=== PATIENT | female | born 1985 | race African-American/Black ===

== ENCOUNTER 2023-09-26 23:07 | Emergency (ER) | payer BC, SELFPAY ==
--- NOTE | ~2023-09-26 | XR_ITS ---
Portable chest x-ray Comparison: None Clinical History: Chest pain Findings: Lungs are clear, without focal consolidation or pleural effusion. Cardiomediastinal silho uette is unremarkable. Bones and soft tissues are unremarkable. Impression: Normal chest. Reviewed, dictated and finalized at location M. Impression: Normal chest.
[2023-09-26 23:17] VITALS: BP 127/78; PULSE 81; RESP 17; TEMP 36.5; O2SAT 100
--- NOTE | 2023-09-26 23:23 | ECG_ITS ---
[facility] [address] Test Date: 2023-09-26 Pat Name: Raven Cano Department: Room: Gender: F Door To Door Selling Agent: : 1985 Requested By: Lucius Dykes Order Number: [id number] Manas MD: Tip Marx M.D. Measurements Intervals [place] Rate: 89 P: 72 CA: 148 QRS: 57 QRSD: 72 T: 68 QT: 340 QTc: 415 Interpretive Statements SINUS RHYTHM NORMAL ECG No previous ECG available for comparison Electronically Signed On 09-27-2023 07:33:16 CDT by Tip Marx M.D.
[2023-09-27 00:12] LABS: Basophils Percent Auto 0.4 % (0.2-1.2); Eosinophils Absolute Auto 0.1 K/mm3 (0-0.3); Hematocrit 38.2 % (37.0-47.0); Hemoglobin 12.9 g/dL (12.0-15.0); Immature Granulocyte Absolute 0.01 K/mm3 (0.00-0.031); Immature Granulocyte Percent A 0.2 % (0-0.5); Lymphocytes Absolute Auto 1.99 K/mm3 (0.9-3.2); Lymphocytes Percent Auto 40.9 % (18.3-44.2); Mean Corpuscular HGB Conc 33.8 g/dl (32-36); Mean Corpuscular Hemoglobin 32.8 pg (26-34); Mean Corpuscular Volume 97.2 fl (80-100); Mean Platelet Volume 9.4 fl (7.4-10.4); Monocytes Absolute Auto 0.4 K/mm3 (0.1-0.6); Monocytes Percent Auto 7.2 % (2.6-8.5); Neutrophils Absolute Auto 2.5 K/mm3 (1.3-6.7); Neutrophils Percent Auto 50.3 % (45.5-73.1); Platelet Count Result 210 k/mm3 (150-375); Red Blood Count 3.93 M/mm3 (4.2-5.4); White Blood Count 4.9 K/mm3 (4.5-10.0)
[2023-09-27 00:34] LABS: SPREG INTERNAL CONTROL Positive; Serum Qual hCG Negative
[2023-09-27 00:40] LABS: Alanine Aminotransferase 33 U/L (6-35); Albumin Level 4.4 g/dL (3.5-5.1); Alkaline Phosphatase 56 U/L (38-126); Anion Gap 7 mmol/L (4-12); Aspartate Amino Transferase 27 U/L (14-36); Bilirubin,Total 0.4 mg/dL (0.2-1.3); Blood Urea Nitrogen 14 mg/dL (7-17); Calcium 9.2 mg/dL (8.4-10.2); Carbon Dioxide 25 mmol/L (22-30); Chloride 108 mmol/L (98-107); Estimated CRCL calculation 89 ml/min; Estimated Glomerular Filt Rate > 60; Glucose 94 mg/dL (65-110); Magnesium 1.9 mg/dL (1.6-2.3); Potassium 4.1 mmol/L (3.4-5.0); Sodium 140 mmol/L (137-145); Troponin I < 0.012 ng/mL (0.000-0.034)
--- NOTE | 2023-09-27 00:53 | ED.ANXIETY ---
HPI - Anxiety General Chief Complaint: Anxiety Stated Complaint: anxiety Time Seen by Provider: 09/27/23 00:52 History of Present Illness HPI narrative: Patient is a 38-year-old female who presents to the emergency department this evening due to an anxiety attack. Patient states that she does have a history of anxiety and does get these panic attacks from time to time, she states that she has not followed up with any doctor regarding this and does not take any medications for anxiety. She did admit that she was having some chest pain when she 1st arrived to the emergency although she is currently denying any chest pain. She denies any nausea or vomiting, any abdominal pain, any fevers or chills at home or any recent URI symptoms. No additional symptoms or concerns at this time. Related Data Allergies Allergy/AdvReac Type Severity Reaction Status Date / Time No Known Allergies Allergy Verified 09/26/23 23:49 Review of Systems Review of Systems: All systems are reviewed and are negative unless stated otherwise in the HPI. Exam Narrative: General: Alert, awake, afebrile, in no acute distress. HEENT: PERRL, no rhinorrhea, no post nasal drip, oropharynx clear. Cardiovascular: Regular rate and rhythm, no murmurs, rubs or gallops, no peripheral edema. Respiratory: Clear to auscultation bilaterally, no tachypnea, no wheezing, no rhonchi, no rubs, no respiratory distress. Abdomen: Soft, nontender, nondistended, no rebound, no guarding, no peritoneal signs. Musculoskeletal: No joint swelling or deformity, normal muscle tone. Skin: No rashes or petechia, no signs of infection. Neurological: Alert and oriented to person, place, and time. Follows all commands. No focal deficits, speech is clear and fluent. Course Vital Signs Vital signs: Vital Signs Temperature 97.7 F 09/26/23 23:17 Pulse Rate 81 09/26/23 23:17 Respiratory Rate 09/26/23 23:17 Blood Pressure 127/78 09/26/23 23:17 Pulse Oximetry 100 09/26/23 23:17 Oxygen Delivery Room Air 09/26/23 23:17 Temperature 97.7 F 09/26/23 23:17 Pulse Rate 81 09/26/23 23:17 Respiratory Rate 17 09/26/23 23:17 Blood Pressure 127/78 09/26/23 23:17 Pulse Oximetry 100 09/26/23 23:17 Oxygen Delivery Room Air 09/26/23 23:17 MDM - Anxiety MDM Narrative Medical decision making narrative: The patient was evaluated by myself in the emergency department. History is obtained from patient who is an independent historian and physical exam was performed. External medical records were reviewed at this time. IV was established and pertinent tests were ordered. EKG was obtained which revealed sinus rhythm at a rate of 89 beats per minute. No ST changes, T wave inversions or evidence of acute ischemia. EKG was independently interpreted by me and is currently pending official cardiology read. Laboratory results obtained revealing no acute process. Imaging studies obtained included CXR which was independently interpreted by me revealing no acute cardiopulmonary process, which is pending final radiology interpretation. Differential diagnosis considerations include acute viral syndrome, anxiety reaction, panic attack and acute coronary syndrome although unlikely given patient's lack of comorbidities and low heart score of 0. Comorbidities impacting this visit include history of anxiety. I have evaluated and discussed social determinants of health with the patient that could potentially impact subsequent diagnosis and treatment plans. On repeat assessment of the patient, reevaluation revealed that the patient is doing well and is in no acute distress. Patient symptoms have improved since she arrived to our emergency department. Repeat vital signs were all reviewed and noted to be stable. Differential diagnosis and treatment plan were discussed with the patient at bedside. Patient agrees with discussion and after shared medical decision making agrees w
== END 2023-09-27 02:57 | disposition home or self-care (01) ==
PROVIDERS: Emergency Provider Emergency Medicine
DX: F41.9 Anxiety disorder, unspecified (principal)
CPT/HCPCS: 36415; 71045; 80053; 83735; 84484; 84703; 85025; 93005; 99284

== ENCOUNTER 2025-03-19 23:40 | Emergency (ER) | payer BC, SELFPAY ==
--- NOTE | ~2025-03-19 | XR_ITS ---
Examination: XR chest 2V Clinical History: sob, palpitations Comparison: 09/27/2023 Technique: PA and Lateral Findings: Cardiomediastinal silhouette normal size and configuration. Lungs clear. No acute bony abnormality. IMPRESSION: 1. No acute cardiopulmonary findings. Reviewed, dictated and finalized at location R. [employer]
--- OUTSIDE RECORDS SUMMARY | 2025-03-19 23:43 | XMS_ITS | Clinical Summary ---
Author Organization [facility] Address [address] [place] [address] Care Team Providers Care Cement Finisher Name Role Phone Mable Hou Jacqueline SATELLITE COMMUNICATIONS OPERATOR Primary Care Provider [phone] Allergies No known active allergies Medications metoprolol succinate ER (TOPROL-XL) 25 MG 24 hr tablet Take 0.5 tablets every day by oral route. Active [place]-3 Fatty Acids (FISH OIL) 500 MG capsule Take 500 mg by mouth daily. Active traMADol (ULTRAM) 50 MG tabletIndicatio ns:Acute Pain < 3 Day Supply Take 1 tablet (50 mg total) by mouth every 6 (six) hours as needed for Pain. Indications: Acute Pain < 3 Day Supply 10 tablet 03/02/2024 Active Active Problems No known active problems Family History Medical History Relation Comments No Known Problems Father No Known Problems Mother Relation Status Comments Father Alive Mother Alive Social History Tobacco Use Types Packs/Day Years Used Date Smoking Tobacco: Never Smokeless Tobacco: Never Tobacco Cessation:Counseling Given: Not Answered Alcohol Use Standard Drinks/Week Comments No 0 (1 standard drink = 0.6 oz pur e alcohol) Comments No Sex and Gender Information Value Date Recorded Sex Assigned at Not on file Legal Sex Female 6:22 PM CDT Gender Identity Not on file Sexual Orientation Not on file Last Filed Vital Signs Vital Sign Reading Time Taken Comments Blood Pressure 112/88 03/02/2024 5:00 PM WARP STARTER Pulse 81 03/02/2024 5:00 PM WARP STARTER Temperature 36.7 C (98 F) 03/02/2024 5:00 PM WARP STARTER Respiratory Rate 16 03/02/2024 5:00 PM WARP STARTER Oxygen Saturation 100% 03/02/2024 5:00 PM WARP STARTER Inhaled Oxygen Concentration - - Weight 51.6 kg (113 lb 12.1 oz) 03/02/2024 1:38 PM WARP STARTER Height 160 cm (5' 3) 03/02/2024 1:38 PM WARP STARTER Body Mass Index 20.15 03/02/2024 1:38 PM WARP STARTER Plan of Treatment Health Maintenance Due Date Last Done Comments Annual Physical 02/04/1987 Hepatitis C 02/04/2002 DTaP, Tdap and Td Vaccines (1 - Tdap) 02/04/2003 03/13/1988, 03/20/1986, 1984, Additional history exists Hepatitis B Vaccines (1 of 3 - 19+ 3-dose series) 02/04/2003 HPV Vaccines (1 - 3-dose SCDM series) 02/04/2011 COVID-19 Vaccine ( season) 2024 Influenza Adult (#1) 2025 Mammogram Screening 01/05/2026 01/06/2024, 10/01/2023, 09/10/2022 Hepatitis A Vaccines Aged Out No long er eligible based on patient's age to complete this topic Meningococcal B Vaccine Aged Out No l onger eligible based on patient's age to complete this topic Meningococcal Vaccine Aged Out No denise miah eligible based on patient's age to complete this topic Pneumococcal Vaccine: Pediatrics (0 to 5 Years) and At-Risk Patients (6 to 49 Years) Aged Out No longer eligible based on patient's age to complete this topic RSV Immunizations Under 20 Months Aged Out No longer eligible based on patient's age to complete this topic Procedures Procedure Name Priority Date/Time Associated Diagnosis Comments MG DIAGNOSTIC LT DIGI Routine 01/06/2024 2:52 PM CDT Abnormal finding on breast imaging from Last 3 Months or Most Recently Relevant to Health Maintenance Results * MG DIAGNOSTIC LT DIGI (01/06/2024 2:52 PM CDT) Anatomical Region Laterality Modality Breast Left Mammography 01/06/2024 3:20 PM CDT Impressions 01/06/2024 3:25 PM CDT =====IMPRESSION:===== Biopsy clip in upper outer quadrant of the left breast ASSESSMENT: WAITING FOR PATHOLOGY Recommendation: 1: Waiting on Pathology Left COMMENTS: Ordered By: TIP ROSS Interpreted By: Wanda Dorsey, 01/06/2024 3:20 PM Narrative 01/06/2024 3:25 PM CDT [facility] [place] [address] EXAMINATION: Digital left diagnostic mammogram with 3-D tomography EXAM DATE/TIME: 01/06/2024 2:51 PM REASON FOR EXAM: post bx, abnormal mammogram COMPARISON: 09/10/2022. 10/01/2023 TECHNIQUE: Digital diagnostic mammography of the left breast was performed in addition to 3-D Tomosynthesis technique. This study was read with the assistance of a computer-aided detection system. TISSUE DENSITY: The breasts are heterogeneously dense, which may obscure small masses. FINDINGS: Biopsy clip in the upper outer quadrant of the left breast at the level of prior identified nodule.. Stable prior biopsy clip within the lateral and inferior portion of the left breast in its mid aspect. Tip Ross MD MAMMO Final Result from Last 3 Months or Most Recently Relevant to Health Maintenance Care Teams Cement Finisher Relationship Specialty Start Date End Date Mable Hou NP [address] [place] [address] PCP - General Nurse Practitioner Family 04/29/23
--- OUTSIDE RECORDS SUMMARY | 2025-03-19 23:43 | XMS_ITS | Clinical Summary ---
Author Organization [facility] Address [address] [place] [phone] Phone Care Team Providers Care House Cleaner Name Role Phone Bryant Boogie MD Primary Care Provider [phone] Active Problems Problem Noted Date Diagnosed Date Heart murmur 09/02/2015 Encounters Date Type Department Care Team Description 02/27/2025 External Device Data ST[facility] ABSTRACTION Provider, Abstract 02/21/2025 External Device Data [facility] ABSTRACTION Provider, Abstract 02/20/2025 External Device Data ST[facility] ABSTRACTION Provider, Abstract 02/13/2025 External Device Data STL ABSTRACTION Provider, Abstract from Last 3 Months Social History Tobacco Use Types Packs/Day Years Used Date Smoking Tobacco: Never Assessed Comments Unknown Sex and Gender Information Value Date Recorded Sex Assigned at Not on file Legal Sex Female 9:14 AM CDT Gender Identity Not on file Sexual Orientation Not on file Plan of Treatment Health Maintenance Due Date Last Done Comments DTAP/TDAP/TD VACCINES (1 - Tdap) 02/04/2003 HEPATITIS B VACCINES (1 of 3 - 19+ 3-dose series) 02/04/2003 HPV VACCINES (1 - 3-dose SCD M series) 02/04/2011 INFLUENZA VACCINE (#1) 2024 BREAST CANCER SCREENING 01/05/2025 01/06/20, 01/06/2024, 09/10/2022 Insurance [employer] Care Teams House Cleaner Relationship Specialty Start Date End Date Bryant Boogie MD PCP - General Internal Medicine 08/28/15
--- OUTSIDE RECORDS SUMMARY | 2025-03-19 23:43 | XMS_ITS | Data Portability ---
Author Organization [place] - [facility] OFFICE Address [address] [place] [address] Assessment Encounter Date Assessment Date Assessment LastModified by Organization Details LastModified Time 07/21/2017 07/21/2017 Discussed with patient findings, diagnosis, and prognosis. Discussed evaluation and treatment options including risks and benefits with patient, and patient expressed understanding. The following interventions were recommended: heart healthy low-fat, low-sodium diet, continue regular exercise, maintain appropriate weight, continue current medications, and medical follow-up as noted. [email or web address] Not available 07/21/2017 12:55:47 01/03/2018 01/03/2018 Discussed with patient findings, diagnosis, and prognosis. Discussed evaluation and treatment options including risks and benefits with patient, and patient expressed understanding. The following interventions were recommended: heart healthy low-fat, low-sodium diet, continue regular exercise, maintain appropriate weight, continue current medications, and medical follow-up as noted. [email or web address] Not available 01/03/2018 11:54:49 02/07/2019 02/07/2019 Discussed with patient findings, diagnosis, and prognosis. Discussed evaluation and treatment options including risks and benefits with patient, and patient expressed understanding. The following interventions were recommended: heart healthy low-fat, low-sodium diet, continue regular exercise, maintain appropriate weight, continue current medications, and medical follow-up as noted. [email or web address] Not available 02/07/2019 18:02:38 Plan of Treatment Reminders Order Date Submit Date Provider Last Modified By Organization Details Last Modified Time Details Appointments None recorded. Lab None recorded. Referral None recorded. Procedures None recorded. Surgeries None recorded. Imaging electrocar diogram 2017 018 [email or web address] Not available 8 14:40:57 electrocar diogram 2017 018 [email or web address] Not available 8 14:27:32 US, echocardio gram, transthora cic, complete, w/ color flow 2015 016 [email or web address] [id number] Not available 6 04:47:22 electrocar diogram 2015 016 [email or web address]_PATCH_ [id number] Not available 6 04:47:22 Medication Orders Toprol XL 25 mg tablet,ext ended release 2018 019 INTERFACE [facility], [address] [place] [address], [id number], 9 18:29:04 magnesium oxide 400 mg (241.3 mg magnesium) tablet 2018 019 [facility]FACE [facility], [address] [place] [address], [id number], 9 18:29:04 Toprol XL 25 mg tablet,ext ended release 2017 018 [facility], [address] [place] [address], [id number], 9 18:07:47 Patient TargetsNo targets recorded. Patient Instructions Encounter Date Encounter Id Patient Instructions Last Modified By Organization Details Last Modified Time 01/02/2016 [id number] heart valve disease: care instructions [email or web address] Not available 04/11/2016 04:47:22 mitral valve prolapse: care instructions [email or web address]_ [email or web address] Not available 04/11/2016 04:47:22 palpitations: care instructions [email or web address]_ [email or web address] Not available 04/11/2016 04:47:22 learning about mood disorders [email or web address]_ [email or web address] Not available 04/11/2016 04:47:22 06/24/2017 [id number] heart valve disease: care instructions [email or web address] Not available 06/24/2017 14:27:32 mitral valve prolapse: care instructions [email or web address] Not available 06/24/2017 14:27:32 palpitations: care instructions [email or web address] Not available 06/24/2017 14:27:32 This document was scribed by Mirlande hutchinson Not available 06/24/2017 14:01:12 07/21/2017 [id number] chest pain: care instructions Not available 07/21/2017 14:14:14 heart valve disease: care instructions [email or web address] Not available 07/21/2017 14:14:14 mitral valve prolapse: care instructions [email or web address] Not available 07/21/2017 14:14:14 palpitations: care instructions [email or web address] Not available 07/21/2017 14:14:14 This document was scribed by Mirlande hutchinson Not available 07/21/2017 13:29:12 01/03/2018 [id number] chest pain: care instructions [email or web address] Not available 01/03/2018 12:23:35 heart valve disease: care instructions [email or web address] Not available 01/03/2018 12:23:35 mitral valve prolapse: care instructions [email or web address] Not available 01/03/2018 12:23:35 palpitations: care instructions [email or web address] Not available 01/03/2018 12:23:35 02/07/2019 [id number] chest pain: care instructions [email or web address] Not available 02/07/2019 18:28:59 heart valve disease: care instructions [email or web address] Not available 02/07/2019 18:28:59 mitral valve prolapse: care instructions [email or web address] Not available 02/07/2019 18:28:59 palpitations: care instructions [email or web address] Not available 02/07/2019 18:28:59 Reason for Referral None Reported. Results Created Date Observation Date Name Description Value Unit Range Abnormal Flag Note LastModifiedBy Organization Detail LastModifiedTime 01/02/20 16 01/02/2016 elect amanda diogr am Result ECG : Sinus rhythm -occas ional ectopi c ventri cular beat. Negati ve precor dial T-wave s. WITHIN NORMAL LIMITS Not Available Humble Bean MD [address], [place], [address], 01/02/2016 13:51:28 06/25/19 18 06/24/2017 elect rocar diogr am Result EKG (06/24): NSR, NSST change s Not Available Humble Bean MD [address], [place], [address], 06/24/2017 14:25:11 01/02/20 16 01/02/2016 elect rocar diogr am No observ ation record ed. [email or web address] Humble Bean MD [address], [place], [address], 02/13/2016 14:10:28 01/12/20 16 01/10/2016 US, echoc ardio gram, trans thora cic, compl ete, w/ color flow No observ ation record ed. esto [facility] [address], [place], [address], 04/01/2016 18:36:00 04/13/20 16 01/10/2016 US, echoc ardio gram, trans thora cic, compl ete, w/ color flow No observ ation record ed. [email or web address] Humble Bean MD [address], [place], [address], 04/15/2016 09:27:49 06/25/19 18 06/24/2017 elect rocar diogr am No observ ation record ed. [email or web address] Not Available 2017 17:20:10 06/25/19 18 06/24/2017 elect rocar diogr am No observ ation record ed. [email or web address] Not Available 2017 17:33:18 07/09/19 18 07/05/2017 US, echoc ardio gram, trans thora cic, compl ete, w/ color flow No observ ation record ed. esto [facility] [address], [place], [address], 07/16/2017 11:25:45 02/09/20 19 01/31/2019 jenny johnson am No observ ation record ed. [email or web address] Not Available 2018 15:25:31 02/09/20 19 01/31/2019 XR, chest No observ ation record ed. Not Available 2018 15:26:03 04/25/20 19 04/05/2019 quan r monit or No observ ation record ed. [email or web address] Not Available 2018 16:16:23 05/25/19 20 05/10/2019 quan r monit or No observ ation record ed. [email or web address] Not Available 2019 14:31:30 Result Notes None recorded. Problems Name Problem SNOMED Code Status Onset Date Resolution Date Notes Provider Name and Address Organization Details Recorded Time Anxiety 19324912 Active 2015 Enedina Monsalve [place], [place] - [facility] 6 05:03:18 Motion sickness 58867247 Active 2015 Brad Harding [place], [place] - [facility] 6 04:38:51 Endometriosis (clinical) 037300684 Active 2015 Brad Hard[place] - [facility] 6 04:39:39 Cyst of ovary 61227041 Active 2015 Enedina Monsalve [place] - [facility] 6 05:03:50 Migraine 96736696 Active 2015 Brad Hard[place] - [facility] 6 04:41:15 Palpitations 85941426 Active 2015 Enedina Monsal[place] - [facility] 6 05:02:44 Mitral valve prolapse 252056913 Active 2015 Enedina Monsalve [place] - [facility] 6 05:03:03 Depressive disorder 75565800 Active 2015 Enedina Monsalve [place] - [facility] 6 05:03:27 Dyslipidemia 891920319 Active 2015 Brad Harding [place], [place] - [facility] 6 02:42:35 Electrocardiog cuauhtemoc abnormal 604113597 Active 2017 Enedina Monsalve [place] - [facility] 8 11:23:07 Chest pain 04370542 Active 2017 Miguel Massey [facility] 8 14:06:31 Osteoarthritis 775990335 Active 2018 Jayson Sullivan [facility] 9 18:06:53 Problem Notes None recorded. Procedures Surgical History Date Name Laterality Status Provider Name and Address Organization Details Recorded Time Partial hysterectomy completed Mcconnell Gricel [facility] 08/02/2015 05:04:16 Imaging Results None recorded. Procedure Notes None recorded. Medical Equipment None Reported. Allergies No known drug allergies Medications Name Sig Start Date Stop Date Status Note LastModified by Organization Details LastModified Time cyclobenza brianda 10 mg tablet Take 1 tablet every day by oral route for 10 days. active Not Available Not Available No t Available amoxicilli n 500 mg capsule 01/03 completed Not Available Not Available Not Available cefuroxime axetil 250 mg tablet 02/07 completed pt not taking . 9 Not Available Not Available Not Available clindamyci n HCl 300 mg capsule 07/21 completed Not Available Not Available Not Available Lidocaine Viscous 2 % mucosal solution 07/21 completed Not Available Not Available Not Available fluconazol e 150 mg tablet active pt not taking . 9 Not Available Not Available Not Available promethazi ne 6.25 mg/5 mL oral syrup active pt not taking . 9 Not Available Not Available Not Available clonazepam 0.5 mg tablet twice daily 01/03 completed Not Available Not Available Not Available metronidaz ole 500 mg tablet active Not Available Not Available Not Available ciprofloxa gracie 500 mg tablet 02/07 completed pt not taking . 9 Not Available Not Available Not Available hydrocodon e 10 mg-acetami nophen 325 mg tablet 01/03 completed Not Available Not Available Not Available magnesium oxide 400 mg (241.3 mg magnesium) tablet Take 1 tablet every other day by oral route. active Not Available Not Available No t Available oxycodone- acetaminop hen 10 mg-325 mg tablet active pt not taking . 9 Not Available Not Available Not Available mirtazapin e 30 mg tablet active pt not taking . 9 Not Available Not Available Not Available digoxin 125 mcg (0.125 mg) tablet Take 1 tablet every day by oral route. 01/03 completed Not Available Not Available Not Available metoprolol succinate ER 25 mg tablet,ext ended release 24 hr Take 0.5 tablets every day by oral route. active Not Available Not Available No t Available diltiazem 60 mg tablet Take 1 tablet twice a day by oral route. 01/03 completed Not taking for months Not Available Not Available Not Available azithromyc in 500 mg tablet 02/07 completed Not Available Not Available Not Available escitalopr am 10 mg tablet Take 1 tablet every day by oral route. active Not Available Not Available No t Available metoprolol tartrate 25 mg tablet active Not Available Not Available Not Available nitrofuran toin monohydrat e/macrocry stals 100 mg capsule 07/21 completed Not Available Not Available Not Available Fish Oil 1000g capsule qd active Not Available Not Available No t Available Toprol XL 50 mg half tablet qd 01/01 completed (Metopr olol succina te) Not Available Not Available Not Available Fish Oil 100 mg-160 mg-1,000 mg capsule Take by oral route. 07/31 completed Not Available Not Available Not Available Virtussin AC 10 mg-100 mg/5 mL oral liquid 07/21 completed Not Available Not Available Not Available Vitals Date Recorded Body weight Heart rate Oxygen saturation Body mass index (BMI) Body height Provider Name and Address Organization Details Last Updated DateTime 06/24/2017 47638.61 g 83 /min 98 % 17.9 kg/m2 162.56 cm [facility] 8 12:16:16 Date Recorded Systolic And Diastolic Provider Name and Address Organization Details Last Updated DateTime 06/24/2017 118/85 mm[Hg] Autumn Yu [facility] 06/24/2017 12:57:36 Date Recorded Body height Body mass index (BMI) Body weight Heart rate Oxygen saturation Systolic And Diastolic Provider Name and Address Organization Details Last Updated DateTime 8 162.56 cm 17.7 kg/m2 30732.0 1 g 94 /min 97 % 100/88 mm[Hg] Tata Matt [facility] 8 13:03:06 Date Recorded Body height Body weight Body mass index (BMI) Heart rate Oxygen saturation Systolic And Diastolic Provider Name and Address Organization Details Last Updated DateTime 6 162.56 cm 55133.0 1 g 17.7 kg/m2 90 /min 99 % 110/60 mm[Hg] Alice Archuleta [facility] 6 13:48:03 Date Recorded Body height Body mass index (BMI) Body weight Heart rate Oxygen saturation Systolic And Diastolic Provider Name and Address Organization Details Last Updated DateTime 8 162.56 cm 17 kg/m2 95175.6 4 g 92 /min 99 % 96/70 mm[Hg] Kasandra Blake [facility] 8 12:06:31 Date Recorded Body height Body mass index (BMI) Body weight Heart rate Respiratory rate Systolic And Diastolic Provider Name and Address Organization Details Last Updated DateTime 9 160.02 cm 18.8 kg/m2 87591.7 9 g 79 /min 18 /min 116/76 mm[Hg] Deb Reza [facility] 9 18:03:08 Social History Question Answer Notes LastModified by Chictini ion Details LastModified Time Tobacco Smoking Status Never Smoker Not Available [facility] 02/27/2020 03:30:19 What Was The Date Of Your Most Recent Tobacco Screening? 07/21/2017 [id number] Information not available 02/27/2020 How Many Years Have You Smoked Tobacco? 0 [id number] Information not available 02/27/2020 Sex: Unknown Functional Status None recorded. Mental Status None recorded. Family History Relationship Description Onset Age of this Age Resolved Age Notes LastModified by Organization Details LastModified Time Mother Diabetes mellitus [email or web address] Not available 2015 05:05:02 Maternal Aunt Diabetes mellitus [email or web address] Not available 2015 05:05:18 Maternal Grandmother Myocardial infarction in 60s with MT [email or web address] Not available 07/21/2017 14:00:38 Medical History Condition Response Coronary Artery Disease N Atrial Fibrillation N Thyroid Disease N Depression Y COPD N Anemia N TIA N Genitourinary Disease N Gastrointestinal Disease N Deep Vein Thrombosis N Diabetes N Cardiomyopathy N Blood Clot N Myocardial Infarction N Valvular Heart Disease Y Hyperlipidemia N Cancer N Stroke N Asthma N Atrial Flutter N Sleep Apnea N Aortic Aneurysm N Sleep Disorder N GERD/Reflux N High Cholesterol N Warfarin Management N Neurologic Disorder N Liver Disease N Heart Disease N Arrhythmia N Hypertension N Kidney Disease N Hematologic Disease N Gynecological HistoryNo gynecological history recorded. Obstetrics History GPAL:G 2 P 0 0 0 0 Past Encounters Encounter ID Performer Location Encounter Start Date Encounter Closed Date Diagnosis/Indication Diagnosis SNOMED-CT Code Diagnosis ICD10 Code Diagnosis IMO Codes Diagnosis Note [id number] MD Charla Raza Office [address] [place] [address] 08/26/2015 12:34:34 08/26/2015 14:13:08 Palpitations 39897424 R00.2 Will increase Cardizem to 90 mg po bid Mitral valve prolapse 40 6036747 I34.1 Dyslipidemia 434416323 E 78.5 [id number] Humble Bean MD [place] [facility] [address] [place] [address] 10/07/2015 17:17:51 10/07/2015 19:45:05 Palpitations 70883266 R00.2 ON Cardizem to 90 mg po bid Mitral valve prolapse 40 3062889 I34.1 Dyslipidemia 544584611 E 78.5 Needs to keep LDL less than 100, and HDL more than 40 Depressive disorder 5813 3857 F32.9 treatment and evaluation by primary care doctor [id number] MD Charla Raza Office [address] [place] [address] 01/02/2016 12:14:29 01/07/2016 09:39:40 Electrocardiogram abnormal 998243986 R94.31 Palpitations 52051371 R0 0.2 On Cardizem Mitral valve prolapse 40 4311995 I34.1 Dyslipidemia 650455954 E 78.5 Depressive disorder 3548 9007 F32.9 treatment and evaluation by primary care doctor [id number] Jayson Sullivan MD [place] [facility] [place] [address] 06/24/2017 12:10:44 06/25/2017 14:09:37 Palpitations 57514360 R00.2 Will obtain 24hr Holter Monitor and ECHO. Start Toprol Mitral valve prolapse 40 5687250 I34.1 ECHO Anxiety 15021649 F41.9 [id number] Miguel Massey MD [place] [facility] [place] [address] 07/21/2017 12:48:56 07/23/2017 12:30:48 Palpitations 44438882 R00.2 Will obtain Zio Heart Monitor to track patients rhythm over a 3 day period. Stopped Diltiazem months ago. Has tried Metoprolol in the past. Did not tolerate either medication . Consider Bystolic pending monitor results. Mitral valve prolapse 40 2120436 I34.1 Stable. Regular exercise, caffeine reduction, stress reduction advised. Had ECHO on 07/05/17 showed LV chamber size is normal. LV wall thickness is normal. There is normal global systolic function and contractil ity. The estimated left ventricle ejection fraction is 60-65%(nor mal). Normal left atrial pressure and diastolic function. There is mild aortic valve sclerosis without significan t stenosis. Mitral valve prolapse cannot be ruled out. The mitral valve leaflet is mildly thickened. There is mild mitral regurgitat ion. There is mild tricuspid regurgitat ion. Anxiety 96310955 F41.9 Stable. Chest pain 19129181 R07. 9 She continues to have progressiv e palpitatio ns for 30 minutes duration that are worse with exertion, with associated central chest pain/cramp ing, lightheade dness and shortness of breath. Reported marked dyspnea on exertion with palpitatio ns climbing 1 flight of stairs for 1 year and unable to walk on a level surface for more than 2 blocks. Patient presents with chest pain with atypical features and exertional dyspnea which can be an anginal equivalent . Needs to begin exercise regiment for MVP treatment. Given the history, exam findings and intermedia te cardiac risk factors, I feel additional investigat ion is warranted. I have made arrangemen ts in the near future for an exercise stress nuclear test (stress echo not possible due to inability to walk at a rapid rate for an extended period).. The procedure was discussed with the patient, and risks, benefits, and alternativ e options were explained. Appropriat e labwork has not been performed recently, therefore I have made arrangemen ts for further testing: FLP, TSH, BMP, Mg, digoxin level. I have asked the patient to curtail exercise and activities until our investigat ion is complete. I have made no adjustment s to the present medical regimen. [id number] MD Charla Raza e Office [address] [place] [address] 01/03/2018 10:55:00 01/03/2018 12:26:42 Palpitations 56165418 R00.2 Will obtain Zio Heart Monitor to track patients rhythm over a 3 day period. Stopped Diltiazem months ago. Has tried Metoprolol in the past. Did not tolerate either medication . Chest pain 09127862 R07. 9 Will get exercise stress echo, to look for any structural heart disease, and to look for any ischemia Mitral valve prolapse 40 1278789 I34.1 Stable. Regular exercise, caffeine reduction, stress reduction advised. Had ECHO on 07/05/17 showed LV chamber size is normal. LV wall thickness is normal. There is normal global systolic function and contractil ity. The estimated left ventricle ejection fraction is 60-65%(nor mal). Normal left atrial pressure and diastolic function. There is mild aortic valve sclerosis without significan t stenosis. Mitral valve prolapse cannot be ruled out. The mitral valve leaflet is mildly thickened. There is mild mitral regurgitat ion. There is mild tricuspid regurgitat ion. Anxiety 91941634 F41.9 Stable. [id number] MD Charla Perez e Office [address] [place] [address] 02/07/2019 17:54:07 02/07/2019 18:15:27 Palpitations 70202214 R00.2 Will obtain Holter Monitor to track patients rhythm .will try Toprol and Magnesium. Chest pain 14101443 R07. 9 Patient presents with chest pain with atypical features. Given the history, exam findings and intermedia te cardiac risk factors, I feel additional investigat ion is warranted. I have made arrangemen ts in the near future for an exercise stress echocardio gram to evaluate for any ischemia, structural heart disease, or exercise induced arrythmia. The procedure was discussed with the patient, and risks, benefits, and alternativ e options were explained. Appropriat e labwork has not been performed recently, therefore I have made arrangemen ts for further testing. I have asked the patient to curtail exercise and activities until our investigat ion is complete. I have made the following adjustment s to the present medical regimen. Mitral valve prolapse 40 2779297 I34.1 Stable. Regular exercise, caffeine reduction, stress reduction advised. Had ECHO on 07/05/17 showed LV chamber size is normal. LV wall thickness is normal. There is normal global systolic function and contractil ity. The estimated left ventricle ejection fraction is 60-65%(nor mal). Normal left atrial pressure and diastolic function. There is mild aortic valve sclerosis without significan t stenosis. Mitral valve prolapse cannot be ruled out. The mitral valve leaflet is mildly thickened. There is mild mitral regurgitat ion. There is mild tricuspid regurgitat ion. Anxiety 23961548 F41.9 Stable. Health Concerns Section Related Observation LastModified by Organization Detai ls LastModified Time None Recorded Concern Status LastModified by Organization Details LastModified Time None Recorded Advance Directives Directive None Recorded Payers Insurance Date Sequence Insurance Name Policy Number Policy Stewart Covered Member ID Stewart Member ID Guarantor Name 05/12/2018 1 [place] [id number] Raven Epps Rachael [id number] 08/02/2019 1 [place] [id number] Raven Miguelkins [id number] 03/14/2016 1 [facility] - DOS PRIOR TO 2020 (MEDICAID REPLACEMENT - HMO) Raven Cano [id number] 03/01/2019 2 [place] Raven Miguelkins [id number] 06/10/2017 1 [employer] (POS) [id number] Elenaubrey Cano [id number] Notes Date Note Type Note Provider Name and Address Organization Details Recorded Time 01/02/2016 text/html CC: palpitations, vomiting 30 year old Woman with mitral valve prolapse , is here for follow-up. Had one episode of Palpitation, and Dizziness yesterday, with vomiting She had significant palpitations last weekend. She is on cardizem, Toprol and digoxin No chest pain. No shortness of breath at rest. Reported dyspnea on exertion . No orthopnea. No PND's . No dizziness. No syncope or near syncope. No leg swelling. Had nausea and vomiting. No major bleeding events. No side effects from medications. Results from this visit, or from the past: 08/26/15 EKG:Sinus Tachycardia -RSR(V1) nondiagnostic Right atrail enlargement BORDERLINE 12/19/14 SOD 137, K 4.0, CL 101, Co2 25, GLU 89, BUN 10, CR 0.6. STRESS TEST: 06/08/14 MPGS Treadmill:No scintigraphic evidence of myocardial ischemia at the level of stress achieved. No scintigraphic evidence of myocardial infarction Normal .Left ventricular ejection fraction, post stress.Normal left ventricular wall motion. SE: 02/19/15 Negative stress echo. Good exercise tolerance. MVP noted. ECHO: ECHO: 06/07/14 TDS, very thin, rocking on ribs. Injection documented no interatrial shunt. EF=45-50%. There is mid global hypokinesis of the left ventricle. 12/19/14 : TC 190, HDL 59, TR 50, LDL 121, AST 21, ALT 16 Humble Bean MD [address] [place], [address], [facility] 01/02/2016 14:18:12 06/24/2017 text/html 06/24/17 CC: palpitations 32 year old Woman with mitral valve prolapse presents for follow-up.She was seen last time about 1.5 yr ago. pt does have palpitations on/off. She states that they are worse recently. Pt stopped all meds and she states that her palpitations are getting worse now. She has bad headaches. Having more frequent palpitations for 2 months. She is not currently taking any medications she is prescribed (Diltiazem, Digoxin, Clonazepam) for the past few months. She stopped taking the medications because she was feeling better and did not think she needed it anymore. Reported chest pain. No shortness of breath at rest. Reported dyspnea on exertion . No orthopnea. No PND's. No dizziness. Reported lightheadedness. No syncope. No leg swelling. Had nausea and vomiting. No major bleeding events. No side effects from medications. Results from this visit, or from the past: 12/19/14 : TC 190, HDL 59, TR 50, LDL 121, AST 21, ALT 16 12/19/14 SOD 137, K 4.0, CL 101, Co2 25, GLU 89, BUN 10, CR 0.6. EKG (06/24/17): NSR, NSST changes 08/26/15 EKG: Sinus Tachycardia -RSR(V1) nondiagnostic Right atrail enlargement BORDERLINE STRESS TEST: 06/08/14 MPGS Treadmill:No scintigraphic evidence of myocardial ischemia at the level of stress achieved. No scintigraphic evidence of myocardial infarction Normal .Left ventricular ejection fraction, post stress.Normal left ventricular wall motion. HOLTER: 08/26/15 Unremarkable holter. ECHO: 01/10/16 : LV chamber size normal. There is normal global systolic function and contractility. The estimated LV ejection fraction is 60-65%.Mitral valve prolapse present. The mitral valve leaflet is mildly thickened. SE: 02/19/15 Negative stress echo. Good exercise tolerance. MVP noted. ECHO: ECHO: 06/07/14 TDS, very thin, rocking on ribs. Injection documented no interatrial shunt. EF=45-50%. There is mid global hypokinesis of the left ventricle. Jayson medrano [place] - [facility] 06/24/2017 14:28:28 07/21/2017 text/html 07/21/17 CC: palpitations 32 year-old -[place] woman with mitral valve prolapse, depression, anxiety, presents for follow-up. She continues to have progressive palpitations for 30 minutes duration that are worse with exertion, with associated central chest pain/cramping, lightheadedness and shortness of breath. No syncope but reports presyncope. Her episodes are becoming more frequent. Pt stopped take the Diltiazem 60 mg BID due to nausea and she reports it is not helping. She is currently on Digoxin. She had a negative 24 Hour Holter monitor 08/2015. Reported exertional chest pain. No shortness of breath at rest. Reported marked dyspnea on exertion with palpitations climbing 1 flight of stairs for 1 year. No orthopnea. No PND's. No dizziness. Reported lightheadedness. No syncope. No leg swelling.Had nausea and vomiting. No major bleeding events. No side effects from medications. No regular exercise. Had ECHO on 07/05/17 showed LV chamber size is normal. LV wall thickness is normal. There is normal global systolic function and contractility. The estimated left ventricle ejection fraction is 60-65%(normal). Normal left atrial pressure and diastolic function. There is mild aortic valve sclerosis without significant stenosis. Mitral valve prolapse cannot be ruled out. The mitral valve leaflet is mildly thickened. There is mild mitral regurgitation. There is mild tricuspid regurgitation. Had STRESS TEST: 06/08/14 MPGS Treadmill: No scintigraphic evidence of myocardial ischemia at the level of stress achieved. No scintigraphic evidence of myocardial infarction Normal .Left ventricular ejection fraction, post stress.Normal left ventricular wall motion. Results from this visit, or from the past: 12/19/14 : TC 190, HDL 59, TR 50, LDL 121, AST 21, ALT 16 12/19/14 SOD 137, K 4.0, CL 101, Co2 25, GLU 89, BUN 10, CR 0.6. EKG (06/24/17): NSR, NSST changes 08/26/15 EKG: Sinus Tachycardia -RSR(V1) nondiagnostic Right atrail enlargement BORDERLINE HOLTER: 08/26/15 Unremarkable holter. STRESS TEST: 06/08/14 MPGS Treadmill:No scintigraphic evidence of myocardial ischemia at the level of stress achieved. No scintigraphic evidence of myocardial infarction Normal .Left ventricular ejection fraction, post stress.Normal left ventricular wall motion. 07/05/17 ECHO: Study quality: Technically difficult. LV chamber size is normal. LV wall thickness is normal. There is normal global systolic function and contractility. The estimated left ventricle ejection fraction is 60-65%(normal). Normal left atrial pressure and diastolic function. There is mild aortic valve sclerosis without significant stenosis. Mitral valve prolapse cannot be ruled out. The mitral valve leaflet is mildly thickened. There is mild mitral regurgitation. There is mild tricuspid regurgitation. ECHO: 01/10/16 : LV chamber size normal. There is normal global systolic function and contractility. The estimated LV ejection fraction is 60-65%.Mitral valve prolapse present. The mitral valve leaflet is mildly thickened. SE: 02/19/15 Negative stress echo. Good exercise tolerance. MVP noted. ECHO: ECHO: 06/07/14 TDS, very thin, rocking on ribs. Injection documented no interatrial shunt. EF=45-50%. There is mid global hypokinesis of the left ventricle. JENA Mccoy - [facility] 07/21/2017 14:14:36 01/03/2018 text/html CC: palpitations, Dizziness, and chest pain 32 year-old -[place] woman with mitral valve prolapse, depression, anxiety, presents for follow-up. She continues to have progressive palpitations for 30 minutes duration that are worse with exertion, with associated central chest pain/cramping, lightheadedness and shortness of breath. No syncope but reports presyncope. Her episodes are becoming more frequent. She could not work due to Dizziness Reported exertional chest pain. No shortness of breath at rest. Reported marked dyspnea on exertion with palpitations climbing 1 flight of stairs for 1 year. No orthopnea. No PND's. No dizziness. Reported lightheadedness. No syncope. No leg swelling.Had nausea and vomiting. No major bleeding events. No side effects from medications. No regular exercise. Had ECHO on 07/05/17 showed LV chamber size is normal. LV wall thickness is normal. There is normal global systolic function and contractility. The estimated left ventricle ejection fraction is 60-65%(normal). Normal left atrial pressure and diastolic function. There is mild aortic valve sclerosis without significant stenosis. Mitral valve prolapse cannot be ruled out. The mitral valve leaflet is mildly thickened. There is mild mitral regurgitation. There is mild tricuspid regurgitation. Had STRESS TEST: 06/08/14 MPGS Treadmill: No scintigraphic evidence of myocardial ischemia at the level of stress achieved. No scintigraphic evidence of myocardial infarction Normal .Left ventricular ejection fraction, post stress.Normal left ventricular wall motion. Results from this visit, or from the past: 12/19/14 : TC 190, HDL 59, TR 50, LDL 121, AST 21, ALT 16 12/19/14 SOD 137, K 4.0, CL 101, Co2 25, GLU 89, BUN 10, CR 0.6. EKG 01/03/18: No EKG, refused. Will come back if necessary EKG (06/24/17): NSR, NSST changes 08/26/15 EKG: Sinus Tachycardia -RSR(V1) nondiagnostic Right atrail enlargement BORDERLINE HOLTER: 08/26/15 Unremarkable holter. STRESS TEST: 06/08/14 MPGS Treadmill:No scintigraphic evidence of myocardial ischemia at the level of stress achieved. No scintigraphic evidence of myocardial infarction Normal .Left ventricular ejection fraction, post stress.Normal left ventricular wall motion. 07/05/17 ECHO: Study quality: Technically difficult. LV chamber size is normal. LV wall thickness is normal. There is normal global systolic function and contractility. The estimated left ventricle ejection fraction is 60-65%(normal). Normal left atrial pressure and diastolic function. There is mild aortic valve sclerosis without significant stenosis. Mitral valve prolapse cannot be ruled out. The mitral valve leaflet is mildly thickened. There is mild mitral regurgitation. There is mild tricuspid regurgitation. ECHO: 01/10/16 : LV chamber size normal. There is normal global systolic function and contractility. The estimated LV ejection fraction is 60-65%.Mitral valve prolapse present. The mitral valve leaflet is mildly thickened. SE: 02/19/15 Negative stress echo. Good exercise tolerance. MVP noted. ECHO: ECHO: 06/07/14 TDS, very thin, rocking on ribs. Injection documented no interatrial shunt. EF=45-50%. There is mid global hypokinesis of the left ventricle. Humble Bean MD [address] [place], [id number], [facility] - [facility] 01/03/2018 12:24:11 02/07/2019 text/html 08/23/17 CC: palpitations fu 34 year-old -[place] woman with mitral valve prolapse, depression, anxiety, presents for follow-up. Pt was seen last time in office about a year ago. Pt presented few days ago to [facility] ER due to palpitations and chest discomfort. After few hours she was dc home. States that is under a lot of stress. Her BP is well controlled. she does not take Metopolol or Magnesium at this point. Previously she had palpitations for 30 minutes duration that are worse with exertion, with associated central chest pain/cramping, lightheadedness and shortness of breath. No syncope but reports presyncope. Her episodes are becoming more frequent. Pt stopped take the Diltiazem 60 mg BID due to nausea and she reports it is not helping. She was on Digoxin. She had a negative 24 Hour Holter monitor 08/2015. Reported exertional chest pain. No shortness of breath at rest. Reported marked dyspnea on exertion with palpitations climbing 1 flight of stairs for 1 year. No orthopnea. No PND's. No dizziness. Reported lightheadedness. No syncope. No leg swelling. Had nausea and vomiting. No major bleeding events. No side effects from medications. No regular exercise. Had ECHO on 07/05/17 showed LV chamber size is normal. LV wall thickness is normal. There is normal global systolic function and contractility. The estimated left ventricle ejection fraction is 60-65%(normal). Normal left atrial pressure and diastolic function. There is mild aortic valve sclerosis without significant stenosis. Mitral valve prolapse cannot be ruled out. The mitral valve leaflet is mildly thickened. There is mild mitral regurgitation. There is mild tricuspid regurgitation. Had STRESS TEST: 06/08/14 MPGS Treadmill: No scintigraphic evidence of myocardial ischemia at the level of stress achieved. No scintigraphic evidence of myocardial infarction Normal .Left ventricular ejection fraction, post stress.Normal left ventricular wall motion. Results from this visit, or from the past: 12/19/14 : TC 190, HDL 59, TR 50, LDL 121, AST 21, ALT 16 12/19/14 SOD 137, K 4.0, CL 101, Co2 25, GLU 89, BUN 10, CR 0.6. EKG (02/07/19): NSR, NSST changes EKG 01/03/18: No EKG, refused. Will come back if necessary EKG (06/24/17): NSR, NSST changes 08/26/15 EKG: Sinus Tachycardia -RSR(V1) nondiagnostic Right atrail enlargement BORDERLINE EKG 06/24/17 : Normal sinus rhythm. within normal limits. HOLTER: 08/26/15 Unremarkable holter. STRESS TEST: 06/08/14 MPGS Treadmill:No scintigraphic evidence of myocardial ischemia at the level of stress achieved. No scintigraphic evidence of myocardial infarction Normal .Left ventricular ejection fraction, post stress.Normal left ventricular wall motion. 07/05/17 ECHO: Study quality: Technically difficult. LV chamber size is normal. LV wall thickness is normal. There is normal global systolic function and contractility. The estimated left ventricle ejection fraction is 60-65%(normal). Normal left atrial pressure and diastolic function. There is mild aortic valve sclerosis without significant stenosis. Mitral valve prolapse cannot be ruled out. The mitral valve leaflet is mildly thickened. There is mild mitral regurgitation. There is mild tricuspid regurgitation. ECHO: 01/10/16 : LV chamber size normal. There is normal global systolic function and contractility. The estimated LV ejection fraction is 60-65%.Mitral valve prolapse present. The mitral valve leaflet is mildly thickened. SE: 02/19/15 Negative stress echo. Good exercise tolerance. MVP noted. ECHO: ECHO: 06/07/14 TDS, very thin, rocking on ribs. Injection documented no interatrial shunt. EF=45-50%. There is mid global hypokinesis of the left ventricle. Jayson medrano [place] - [facility] 02/07/2019 18:29:32 OBGyn Episode No OBEpisode recorded.
[2025-03-20] VITALS (7 sets, daily range): BP systolic 113–134; BP diastolic 87–93; PULSE 87–94; RESP 14–17; TEMP 36.8; O2SAT 97–100
--- NOTE | 2025-03-20 00:17 | ECG_ITS ---
Test Date: 2025-03-20 00:27:48 Measurements Intervals [place] Rate: 90 P: 68 MA: 163 QRS: 53 QRSD: 74 T: 69 QT: 326 QTc: 399 Interpretive Statements SINUS RHYTHM WITH OCCASIONAL SUPRAVENTRICULAR PREMATURE COMPLEXES NONSPECIFIC T-WAVE ABNORMALITY Electronically Signed On 03-20-2025 05:56:17 BENCH CARPENTER by Driss Zurita D.O
--- NOTE | 2025-03-20 00:36 | ED_ITS ---
HPI - General Adult General Chief complaint: Chest Pain Stated complaint: headache, short of breath, heart fluttering Time Seen by Provider: 03/20/25 00:17 Source: patient Mode of arrival: ambulatory Limitations: no limitations History of Present Illness HPI narrative: Patient is a 40-year-old female who presents the ED with palpitations. Patient reports having persistent palpitations over the past 1 week. States he feels as though her heart is skipping a beat and beating irregularly. States the palpitations are worse at night. States when the palpitations occur, she begins feeling short of breath, has some intermittent chest discomfort. Also reports having intermittent headaches over the past 1 week. Denies history of migraines. Denies cough or cold symptoms. Denies dizziness, lightheadedness. Denies focal numbness or weakness, vision changes. Related Data Allergies Allergy/AdvReac Type Severity Reaction Status Date / Time metoclopramide (From Reglan) AdvReac Mild akathisia Verified 03/20/25 01:46 Review of Systems 2 Review of Systems: All systems reviewed & are unremarkable except as noted in HPI. All systems reviewed & are unremarkable except as noted in HPI and below Exam 2 Narrative: GENERAL: Well appearing, thin, non-toxic, in no acute distress. HEAD: Normocephalic, atraumatic. RESPIRATORY: Airway patent, respirations nonlabored. Clear to auscultation bilaterally, no rales, rhonchi, wheezing. CARDIOVASCULAR: Regular rate and rhythm without murmurs, rubs, or gallops. Occasional ectopy heard w/ auscultation MUSCULOSKELETAL: Moves all extremities. No gross deformities. SKIN: Warm, dry, normal color. NEURO: A&O X3. Speech clear. Cranial nerves II-XII grossly intact. Steady gait. No ataxic movements. No focal deficits PSYCHIATRIC: Appropriate mood and affect. Normal interaction. Course Vital Signs Vital signs: Vital Signs Temperature 98.2 F 03/20/25 00:45 Pulse Rate 90 03/20/25 00:45 Respiratory Rate 14 03/20/25 00:45 Blood Pressure 134/93 H 03/20/25 00:45 Pulse Oximetry 100 03/20/25 00:45 Oxygen Delivery Room Air 03/20/25 00:45 Temperature 98.2 F 03/20/25 01:45 Pulse Rate 92 03/20/25 03:40 Respiratory Rate 17 03/20/25 03:40 Blood Pressure 113/87 03/20/25 03:40 Pulse Oximetry 100 03/20/25 03:22 Oxygen Delivery Room Air 03/20/25 00:51 Medical Decision Making MDM Narrative Medical decision making narrative: Presented to ED with 1 week history of intermittent palpitations, shortness of breath, headaches. Vitals signs are stable upon arrival. Patient in no acute distress. EKG with sinus rhythm, occasional PVCs, no significant concerning ST changes. Troponin undetectable Chest x-ray interpreted by myself without focal consolidation D-dimer within normal range Remainder basic laboratory studies are otherwise fairly unremarkable. Mag was borderline at 1.7. Given IV replacement given presence of palpitations TSH is elevated to 9.03. T4 WNL. Subclinical hypothyroidism at this time. Discussed this with patient and advised mag and thyroid may be contributing to palpitations. Patient given migraine cocktail, fluids, Mag. She is reporting improvement of palpitations with supportive therapy. Updated on lab and imaging findings. Advised will need to have very close follow-up with primary care doctor for further evaluation of thyroid studies. Discussed also following up with Cardiology for potential Holter monitor placement to determine PVC burden. She is in agreement with plan. Feels comfortable going home. Given strict return precautions. D/C in stable condition. Medical Records Medical records reviewed: Yes I reviewed the external patient's medical records. Vital Signs Vital Signs: Vital Signs Temperature 98.2 F 03/20/25 00:45 Pulse Rate 90 03/20/25 00:45 Respiratory Rate 14 03/20/25 00:45 Blood Pressure 134/93 H 03/20/25 00:45 Pulse Oximetry 100 03/20/25 00:45 Oxygen Delivery Room Air 03/20/25 00:45 Temperature 98.2 F 03/20/25 01:45 Pulse Rate 92 03/20/25 03:40 Respiratory Rate 17 03/20/25 03:40 Blood Pressure 113/87 03/20/25 03:40 Pulse Oximetry 100 03/20/25 03:22 Oxygen Delivery Room Air 03/20/25 00:51 Lab Data Lab results reviewed: Yes I reviewed the patient's lab results. 03/20/25 01:15 03/20/25 01:38 Labs: Lab Results 03/20/25 03/20/25 Range/Units 01:15 01:38 WBC 5.4 (4.5-10.0) K/mm3 RBC 4.09 L (4.2-5.4) M/mm3 Hgb 13.1 (12.0-15.0) g/dL Hct 39.3 (37.0-47.0) % MCV 96.1 (80-100) fl MCH 32.0 (26-34) pg MCHC 33.3 (32-36) g/dl RDW 12.3 (11.5-14.5) % Plt Count 257 (150-375) k/mm3 MPV 9.5 (7.4-10.4) fl Immature Gran % (Auto) 0.2 (0-0.5) % Neut % (Auto) 44.6 L (45.5-73.1) % Lymph % (Auto) 45.4 H (18.3-44.2) % [place] % (Auto) 7.9 (2.6-8.5) % Eos % (Auto) 1.3 (0-4.4) % Baso % (Auto) 0.6 (0.2-1.2) % Lymph # (Auto) 2.43 (0.9-3.2) K/mm3 [place] # (Auto) 0.4 (0.1-0.6) K/mm3 Eos # (Auto) 0.1 (0-0.3) K/mm3 Baso # (Auto) 0.0 (0.0-0.1) K/mm3 Abs Immat Gran (auto) 0.01 (0.00-0.031) K/mm3 Absolute Neuts (auto) 2.4 (1.3-6.7) K/mm3 Absolute Nucleated RBC 0.000 (0.0-0.012) K/mm3 Nucleated RBC % 0.0 (0.0-0.2) % PT 13.5 (11.1-14.7) Seconds INR 1.0 APTT 28.2 (22.3-36.8) Seconds D-Dimer < 0.27 (<0.48) ug/mL Sodium 136 L (137-145) mmol/L Potassium 4.0 (3.4-5.0) mmol/L Chloride 104 (98-107) mmol/L Carbon Dioxide 26 (22-30) mmol/L Anion Gap 6 (4-12) mmol/L BUN 13 (7-17) mg/dL Creatinine 0.64 L (0.7-1.0) mg/dL Estim Creat Clear Calc 82 ml/min Estimated GFR > 60 (59 - ) Glucose 100 (65-110) mg/dL Calcium 9.1 (8.4-10.2) mg/dL Magnesium 1.7 (1.6-2.3) mg/dL Total Bilirubin 0.4 (0.2-1.3) mg/dL AST 26 (14-36) U/L ALT 38 H (6-35) U/L Alkaline Phosphatase 59 (38-126) U/L Troponin I < 0.012 (0.000-0.034) ng/mL Total Protein 7.0 (6.3-8.2) g/dL Albumin 4.0 (3.5-5.1) g/dL TSH (Reflex) 9.030 H (0.465-4.68) uIU/mL Free T4 1.06 (0.78-2.19) ng/dL Total T3 1.00 (0.82-1.58) NG/ML Urine Color Yellow (Yellow) Urine Appearance Cloudy H (Clear) Urine pH 6.0 (5.0-9.0) Ur Specific [place] 1.023 (1.001-1.035) Urine Protein Negative (Negative) mg/dL Urine Glucose (UA) Negative (Negative) mg/dL Urine Ketones Negative (Negative) mg/dL Ur Blood (Man) Negative (Negative) Urine Nitrate Negative (Negative) Urine Bilirubin Negative (Negative) Urine Urobilinogen 1.0 (<2.0) mg/dL Leukocyte Esterase Rfl Negative (Negative) DAMIR/UL Urine RBC 0-2 (0-2) /hpf Urine WBC 0-5 (0-3) /hpf Ur Squamous Epith Cells Few (Few) /hpf Urine Bacteria None seen /hpf Urine Casts 0-2 Imaging Data Attestation: I personally reviewed and interpreted this imaging study as follows: My impression: CXR: No acute cardiopulmonary abnormality ECG Data EKG #1: Attestation: I personally reviewed and interpreted this ECG as follows: ECG completion date: 03/20/25 ECG completion time: 00:27 EKG Interpretation: normal rate (90), sinus rhythm, PVCs and non-specific ST changes Discharge Plan Discharge Clinical Impression: Intermittent palpitations, PVCs (premature ventricular contractions), Intermittent headache, Elevated TSH Patient Disposition: Home Condition: Stable Instructions: Antibiotic Form, Heart Palpitations (ED), Acute Headache (ED), Hypomagnesemia (ED), Premature Atrial Contractions (ED) Additional Instructions: Your TSH was elevated here. You will need to have close follow up with primary care for this. This may be contributing to your palpitations. Also recommended follow-up with Cardiology for further evaluation and for potential Holter monitor placement. Call offices today to make follow up appointment. Stay well hydrated. Continue Tylenol/ibuprofen as needed for further headaches. Return to ED if you experience worsening or severe pain, severe palpitations, chest pain, difficulty breathing, unable to keep down food or drink, severe dizziness or lightheadedness, passing out, or any other symptoms of concern. Patient Language: Divehi Follow-up/Referrals: Tip Marx MD [Physician, Cardiology] PHYSICIAN,CLINICAL DATA MANAGEMENT MANAGER [Primary Care Provider, Internal Medicine] Andi De La Vega MD [Physician, Family Practice] Referral Note: Time of Disposition: 03:34
[2025-03-20] MEDS: ACETAMINOPHEN 500 MG TABLET 1000 MG PO (01:18)
[2025-03-20] MEDS: METOCLOPRAMIDE HCL INJ 10 MG/2 ML VIAL IV PUSH (01:19)
[2025-03-20] MEDS: SODIUM CHLORIDE 0.9% IV 1,000 ML 999 ML IV CONT (01:19)
[2025-03-20 01:24] LABS: Hematocrit 39.3 % (37.0-47.0); Hemoglobin 13.1 g/dL (12.0-15.0); Immature Granulocyte Percent A 0.2 % (0-0.5); Lymphocytes Absolute Auto 2.43 K/mm3 (0.9-3.2); Mean Corpuscular HGB Conc 33.3 g/dl (32-36); Mean Corpuscular Hemoglobin 32.0 pg (26-34); Mean Corpuscular Volume 96.1 fl (80-100); Nucleated Red Blood Cells Absolute Auto 0.000 K/mm3 (0.0-0.012); Nucleated Red Blood Cells Perc 0.0 % (0.0-0.2); Platelet Count Result 257 k/mm3 (150-375); Red Blood Count 4.09 M/mm3 (4.2-5.4); White Blood Count 5.4 K/mm3 (4.5-10.0)
[2025-03-20 01:31] LABS: Add Urine Microscopic? YES; Appearance Urine Cloudy (Clear); Glucose Urine UA Negative (Negative); Leukocyte Esterase Ur Negative LEU/UL (Negative); Nitrate Urine Negative (Negative); Non Pathogenic Casts 0-2; Specific Grav Ur 1.023 (1.001-1.035)
[2025-03-20 01:56] LABS: INR 1.0; Partial Thromboplastin Time 28.2 Seconds (22.3-36.8); Prothrombin Time 13.5 Seconds (11.1-14.7)
[2025-03-20 01:59] LABS: Alanine Aminotransferase 38 U/L (6-35); Albumin Level 4.0 g/dL (3.5-5.1); Alkaline Phosphatase 59 U/L (38-126); Anion Gap 6 mmol/L (4-12); Aspartate Amino Transferase 26 U/L (14-36); Bilirubin,Total 0.4 mg/dL (0.2-1.3); Blood Urea Nitrogen 13 mg/dL (7-17); Calcium 9.1 mg/dL (8.4-10.2); Carbon Dioxide 26 mmol/L (22-30); Chloride 104 mmol/L (98-107); Estimated CRCL calculation 82 ml/min; Estimated Glomerular Filt Rate > 60; Glucose 100 mg/dL (65-110); Magnesium 1.7 mg/dL (1.6-2.3); Potassium 4.0 mmol/L (3.4-5.0); Sodium 136 mmol/L (137-145); Total Protein 7.0 g/dL (6.3-8.2)
[2025-03-20 02:11] LABS: Troponin I < 0.012 ng/mL (0.000-0.034)
[2025-03-20] MEDS: MAGNESIUM SULF 2 GM/WATER 50ML 2 GM/50 ML BAG IVPB (02:15)
[2025-03-20 03:02] LABS: Thyroid Stimulating Hormone Reflex 9.030 uIU/mL (0.465-4.68)
[2025-03-20 03:37] LABS: Free T4 Free Thyroxine Reflex 1.06 ng/dL (0.78-2.19)
[2025-03-20 04:17] LABS: Total Triiodothyronine (T3) 1.00 NG/ML (0.82-1.58)
== END 2025-03-20 03:41 | disposition home or self-care (01) ==
PROVIDERS: Emergency Provider Physician Assistant
DX: R00.2 Palpitations (principal); I49.3 Ventricular premature depolarization; R51.9 Headache, unspecified; R94.6 Abnormal results of thyroid function studies
CPT/HCPCS: 36415; 71046; 80053; 81001; 83735; 84439; 84443; 84480; 84484; 85025; 85380; 85610; 85730; 93005; 96361; 96365; 96375; 99284; A9270; J1200; J2765; J3475; J7030